=== PATIENT | male | born 2000 | race Caucasian/White ===

== ENCOUNTER 2018-09-25 20:17 | Emergency (ER) | payer OTHER, SELFPAY ==
--- NOTE | 2018-09-25 21:05 | EDPHYS ---
Physician Documentation [facility] Name: Donis Cagle Age: 17 yrs Sex: Male : 2000 Arrival Date: 09/25/2018 Time: 20:26 Bed Waiting Private MD: ED Physician Indra Sterling HPI: 09/25 20:52 This 17 yrs old Male presents to ER via Ambulatory with complaints of Work tw4 Note. 20:52 The patient presents to the emergency department with nausea, vomiting, 2 times since tw4 the onset of symptoms. Possible causes: unknown. The symptoms are aggravated by nothing. The symptoms are alleviated by nothing. Associated signs and symptoms: The patient has no apparent associated signs or symptoms. The patient has not experienced similar symptoms in the past. 20:55 Onset: The symptoms/episode began/occurred 2 day(s) ago, and improved yesterday. tw4 Historical: - Allergies: 20:28 No Known Allergies; aj - Home Meds: 20:28 None [Active]; aj - PMHx: 20:28 None; aj - PSHx: 20:28 None; aj - Immunization history:: Adult Immunizations up to date. - Social history:: Smoking status: Patient uses tobacco products, smokes one pack cigarettes per day. - Ebola Screening: : Patient negative for fever greater than or equal to 101.5 degrees Fahrenheit, and additional compatible Ebola Virus Disease symptoms Patient denies exposure to infectious person Patient denies travel to an Ebola-affected area in the 21 days before illness onset No symptoms or risks identified at this time. ROS: 20:52 Constitutional: Negative for fever, chills, and weight loss, Eyes: Negative for injury, tw4 pain, redness, and discharge, Cardiovascular: Negative for chest pain, palpitations, and edema, Respiratory: Negative for shortness of breath, cough, wheezing, and pleuritic chest pain. 20:52 Back: Negative for injury and pain, MS/Extremity: Negative for injury and deformity, Skin: Negative for injury, rash, and discoloration. 20:52 Abdomen/GI: Positive for nausea and vomiting, nausea, vomiting, and diarrhea, nausea. Exam: 20:52 Constitutional: This is a well developed, well nourished patient who is awake, alert, tw4 and in no acute distress. Head/Face: Normocephalic, atraumatic. Chest/axilla: Normal chest wall appearance and motion. Nontender with no deformity. No lesions are appreciated. Cardiovascular: Regular rate and rhythm with a normal S1 and S2. No gallops, murmurs, or rubs. Normal PMI, no JVD. No pulse deficits. Respiratory: Lungs have equal breath sounds bilaterally, clear to auscultation and percussion. No rales, rhonchi or wheezes noted. No increased work of breathing, no retractions or nasal flaring. Abdomen/GI: Soft, non-tender, with normal bowel sounds. No distension or tympany. No guarding or rebound. No evidence of tenderness throughout. Back: No spinal tenderness. No costovertebral tenderness. Full range of motion. MS/ Extremity: Pulses equal, no cyanosis. Neurovascular intact. Full, normal range of motion. Neuro: Awake and alert, GCS 15, oriented to person, place, time, and situation. Cranial nerves II-XII grossly intact. Motor strength 5/5 in all extremities. Sensory grossly intact. Cerebellar exam normal. Normal gait. Vital Signs: 20:28 BP 112 / 99; Pulse 76; Resp 19; Temp 98.1; Pulse Ox 97% on R/A; Weight 132.9 kg; Height aj 5 ft. 11 in. (180.34 cm); 20:28 Body Mass Index 40.86 (132.90 kg, 180.34 cm) aj MDM: 21:03 Differential diagnosis: Nonspecific abd pain, pancreatitis. Data reviewed: vital signs, tw4 nurses notes. Counseling: I had a detailed discussion with the patient and/or guardian regarding: the historical points, exam findings, and any diagnostic results supporting the discharge/admit diagnosis. Medical screen evaluation completed. [facility] emergency medical condition absent. Special discussion: I discussed with the patient/guardian in detail that at this point there is no indication for admission to the hospital. It is understood, however, that if the symptoms persist or worsen the patient needs to return immediately for re-evaluation. 21:05 Patient medically screened. tw4 Administered Medications: No medications were administered Disposition: 09/25/18 21:05 Discharged to Home. Impression: Encounter for general adult medical examination without abnormal findings. - Condition is Stable. - Discharge Instructions: Medical Screening Exam. - Medication Reconciliation Form, Thank You Letter, Antibiotic Education, Prescription Opioid Use form. - Work release form (09/25/18 21:08). aj - Follow up: Private Physician; When: Upon discharge from the Emergency Department; Reason: If symptoms return, Further diagnostic work-up, Recheck today's complaints, Continuance of care. - Problem is new. - Symptoms have improved. Signatures: Yamila Garcia RN RN Indra Murray MD MD tw4 Corrections: (The following items were deleted from the chart) 20:55 20:52 Onset: The symptoms/episode began/occurred today, tw 21:08 21:05 09/25/2018 21:05 Discharged to Home. Impression: Encounter for general adult aj medical examination without abnormal findings. Condition is Stable. Forms are Medication Reconciliation Form, Thank You Letter, Antibiotic Education, Prescription Opioid Use. Follow up: Private Physician; When: Upon discharge from the Emergency Department; Reason: If symptoms return, Further diagnostic work-up, Recheck today's complaints, Continuance of care. Problem is new. Symptoms have improved. tw4
--- NOTE | 2018-09-25 21:05 | ER ---
Nurse's Notes [facility] Name: Donis Cagle Age: 17 yrs Sex: Male : 2000 Arrival Date: 09/25/2018 Time: 20:26 Bed Waiting Private MD: Diagnosis: Encounter for general adult medical examination without abnormal findings Presentation: 09/25 20:27 Presenting complaint: Patient states: Patient needs a work note for past 2 days as aj patient called in to work for N/V and upper abdominal pain that has since resolved. Better after eating. Transition of care: patient was not received from another setting of care. Onset of symptoms was September 23, 2018. Risk Assessment: Do you want to hurt yourself or someone else? Patient reports no desire to harm self or others. Initial Sepsis Screen: Does the patient meet any 2 criteria? No. Patient's initial sepsis screen is negative. Does the patient have a suspected source of infection? No. Patient's initial sepsis screen is negative. Care prior to arrival: None. 20:27 Method Of Arrival: Ambulatory 20:27 Acuity: LISA 3 Triage Assessment: 20:28 General: Appears in no apparent distress. comfortable, obese, Behavior is calm, aj cooperative, appropriate for age. Pain: Denies pain. Neuro: Level of Consciousness is awake, alert, obeys commands, Oriented to person, place, time, situation, Appropriate for age. Respiratory: Airway is patent Respiratory effort is even, unlabored, Respiratory pattern is regular, symmetrical. GI: Patient reports N/V and upper abdominal pain that has since resolved. Derm: Skin is intact, is healthy with good turgor, Skin is pink, warm \T\ dry. normal. Historical: - Allergies: 20:28 No Known Allergies; aj - Home Meds: 20:28 None [Active]; aj - PMHx: 20:28 None; aj - PSHx: 20:28 None; aj - Immunization history:: Adult Immunizations up to date. - Social history:: Smoking status: Patient uses tobacco products, smokes one pack cigarettes per day. - Ebola Screening: : Patient negative for fever greater than or equal to 101.5 degrees Fahrenheit, and additional compatible Ebola Virus Disease symptoms Patient denies exposure to infectious person Patient denies travel to an Ebola-affected area in the 21 days before illness onset No symptoms or risks identified at this time. Vital Signs: 20: BP 112 / 99; Pulse 76; Resp 19; Temp 98.1; Pulse Ox 97% on R/A; Weight 132.9 kg; Height aj 5 ft. 11 in. (180.34 cm); 20: Body Mass Index 40.86 (132.90 kg, 180.34 cm) ED Course: 20:26 Patient arrived in ED. aj 20: Triage completed. aj 20: Arm band placed on left wrist. Patient placed in an exam room. aj 20:51 Indra Sterling MD is Attending Physician. tw4 Administered Medications: No medications were administered Outcome: :59 Medical screen evaluation completed per provider. Patient declined treatment. aj 20: Condition: good :59 Following a medical screening exam, the patient was provided information regarding alternative care sites and resources available per registration personnel. 21:05 Discharge ordered by . tw4 21:08 Patient left the ED. aj Signatures: Yamila Garcia RN RN Indra Murray MD MD tw4 Corrections: (The following items were deleted from the chart) 20: Presenting complaint: Patient states: Patient needs a work note for past 2 days aj as patient called in to work for N/V and upper abdominal pain that has since resolved aj : Acuity: LISA 5 aj aj
[2018-09-25 21:19] VITALS: BP 112/99; TEMP 98.1; O2SAT 97
== END 2018-09-25 21:08 | disposition home or self-care (01) ==
LOC: ER 20:17
DX: Z00.00 Encounter for general adult medical examination without abnormal findings (principal); F17.210 Nicotine dependence, cigarettes, uncomplicated
CPT/HCPCS: 99281

== ENCOUNTER 2018-11-27 17:19 | Emergency (ER) | payer SELFPAY ==
[2018-11-27] MEDS ORDERED: KETOROLAC 30 MG/ML INJ ONE (19:01)
--- NOTE | 2018-11-27 20:24 | RAD REPORT ---
EXAM DESCRIPTION: RAD - Foot Right 3 View - 11/27/2018 7:58 pm CLINICAL HISTORY: PAIN COMPARISON: No comparisons FINDINGS: No fracture or dislocation of the right foot is seen. A small plantar calcaneal spur is ev ident.
--- NOTE | 2018-11-27 20:39 | EDPHYS ---
Physician Documentation [facility] Name: Donis Cagle Age: 17 yrs Sex: Male : 2000 Arrival Date: 11/27/2018 Time: 17:21 Bed 18 Private MD: None, None ED Physician Aaron Mcneil HPI: 11/27 18:33 This 17 yrs old Male presents to ER via Ambulatory with complaints of Feet jmm Swelling. 18:33 The patient presents with pain. Onset: The symptoms/episode began/occurred today. jmm Modifying factors: The symptoms are alleviated by elevation of extremity, the symptoms are aggravated by weight bearing. Associated signs and symptoms: Pertinent negatives: fever. This is a 17 year old male with no chronic medical conditions that presents to the ED with right foot pain beginning today. Patient denies injury, denies fever. States having 1 episode previously. . Historical: - Allergies: 17:27 No Known Allergies; tw2 - Home Meds: 17:27 None [Active]; tw2 - PMHx: 17:27 None; tw2 - PSHx: 17:27 None; tw2 - Immunization history:: Adult Immunizations. - Social history:: Smoking status: . - Ebola Screening: : Patient negative for fever greater than or equal to 101.5 degrees Fahrenheit, and additional compatible Ebola Virus Disease symptoms Patient denies travel to an Ebola-affected area in the 21 days before illness onset. ROS: 18:33 Constitutional: Negative for fever, chills, and weight loss, Eyes: Negative for injury, jmm pain, redness, and discharge, ENT: Negative for injury, pain, and discharge, Neck: Negative for injury, pain, and swelling, Cardiovascular: Negative for chest pain, palpitations, and edema, Respiratory: Negative for shortness of breath, cough, wheezing, and pleuritic chest pain, Abdomen/GI: Negative for abdominal pain, nausea, vomiting, diarrhea, and constipation, Back: Negative for injury and pain, : Negative for injury, bleeding, discharge, and swelling. 18:33 MS/extremity: Positive for pain, swelling. 18:33 All other systems are negative. Exam: 18:33 Constitutional: This is a well developed, well nourished patient who is awake, alert, jmm and in no acute distress. Head/Face: atraumatic. Eyes: EOMI, no conjunctival erythema appreciated ENT: Moist Mucus Membranes Neck: Trachea midline, Supple Chest/axilla: Normal chest wall appearance and motion. Cardiovascular: Regular rate and rhythm. No edema appreciated Respiratory: Normal respirations, no respiratory distress appreciated Abdomen/GI: Non distended, soft Back: Normal ROM 18:33 Skin: erythema noted to the plantar surface of the right ball of the foot, TTP at the region of the 1st mtp, full dorsalis pulse, NVI. 18:33 Neuro: Orientation: is normal, Mentation: is normal, Memory: is normal. 18:33 Psych: Behavior/mood is pleasant, cooperative. Vital Signs: 17:26 BP 126 / 66; Pulse 60; Resp 18; Temp 97.7(TE); Pulse Ox 96% on R/A; Pain 7/10; tw2 MDM: 18:33 Patient medically screened. [facility] 20:31 Data reviewed: vital signs, nurses notes. Counseling: I had a detailed discussion with lupillo the patient and/or guardian regarding: the historical points, exam findings, and any diagnostic results supporting the discharge/admit diagnosis, radiology results, the need for outpatient follow up, to return to the emergency department if symptoms worsen or persist or if there are any questions or concerns that arise at home. ED course: Symptoms are alleviated with ketorolac. Patient given anti inflammatories and advised to follow up with podiatry. Patient given strict return precautions. Patient understood and agrees with the plan of care. . 11/27 18:34 Order name: Foot Right 3 View XRAY; Complete Time: 20:26 [facility] Administered Medications: 18:54 Drug: Ketorolac 30 mg Route: IM; Site: right gluteus; la1 20:48 Follow up: Response: No adverse reaction; Pain is decreased tl2 Disposition: 11/28 09:55 Co-signature as Attending Physician, Aaron Mcneil MD. rn Disposition: 11/27/18 20:38 Discharged to Home. Impression: Pain in right foot. - Condition is Stable. - Discharge Instructions: Foot Pain. - Prescriptions for Ibuprofen 800 mg Oral Tablet - take 1 tablet by ORAL route every 8 hours As needed take with food; 30 tablet. - Work release form, Medication Reconciliation Form, Thank You Letter, Antibiotic Education, Prescription Opioid Use form. - Follow up: Stran, Rajesh, DPM; When: 2 - 3 days; Reason: Recheck today's complaints, Continuance of care, Re-evaluation by your physician. Signatures: Dispatcher [employer] EDNaeem Hidalgo PA PA jmm Nieto, Roman, MD MD rn Attema, Lee RN RN la1 Amy Walden RN RN tw2 Rosa Reynoso RN RN tl2 Corrections: (The following items were deleted from the chart) 11/27 20:48 20:38 11/27/2018 20:38 Discharged to Home. Impression: Pain in right foot. Condition is tl2 Stable. Forms are Medication Reconciliation Form, Thank You Letter, Antibiotic Education, Prescription Opioid Use. Follow up: Rajesh Coyle; When: 2 - 3 days; Reason: Recheck today's complaints, Continuance of care, Re-evaluation by your physician. lupillo
--- NOTE | 2018-11-27 20:39 | ER ---
Nurse's Notes [facility] Name: Donis Cagle Age: 17 yrs Sex: Male : 2000 Arrival Date: 11/27/2018 Time: 17:21 Bed 18 Private MD: None, None Diagnosis: Pain in right foot Presentation: 11/27 17:25 Presenting complaint: Patient states: it was a little swollen yesterday but i had to tw2 work today and i am on my feet all day now it is just unbearable. Transition of care: patient was not received from another setting of care. Onset of symptoms was November 27, 2018. Risk Assessment: Do you want to hurt yourself or someone else? Patient reports no desire to harm self or others. Initial Sepsis Screen: Does the patient meet any 2 criteria? No. Patient's initial sepsis screen is negative. Does the patient have a suspected source of infection? No. Patient's initial sepsis screen is negative. Care prior to arrival: None. 17:25 Method Of Arrival: Ambulatory tw2 17:25 Acuity: LISA 4 tw2 17:27 Presenting complaint: Patient states: it hurts the most right under my big toe. tw2 Triage Assessment: 17:26 General: Appears in no apparent distress. Behavior is calm, cooperative, appropriate tw2 for age. Pain: Complains of pain in right foot. Historical: - Allergies: 17:27 No Known Allergies; tw2 - Home Meds: 17:27 None [Active]; tw2 - PMHx: 17:27 None; tw2 - PSHx: 17:27 None; tw2 - Immunization history:: Adult Immunizations. - Social history:: Smoking status: . - Ebola Screening: : Patient negative for fever greater than or equal to 101.5 degrees Fahrenheit, and additional compatible Ebola Virus Disease symptoms Patient denies travel to an Ebola-affected area in the 21 days before illness onset. Screenin:17 Abuse screen: Denies threats or abuse. Nutritional screening: No deficits noted. la1 Tuberculosis screening: No symptoms or risk factors identified. Fall Risk None identified. Assessment: 18:16 General: Appears comfortable, Behavior is calm, cooperative. Pain: Complains of pain in la1 right foot. Neuro: Level of Consciousness is awake, alert, obeys commands, Oriented to person, place, time, situation. Cardiovascular: Capillary refill < 3 seconds Patient's skin is warm and dry. Respiratory: Airway is patent Trachea midline Respiratory effort is even, unlabored. GI: No signs and/or symptoms were reported involving the gastrointestinal system. : No signs and/or symptoms were reported regarding the genitourinary system. Musculoskeletal: Swelling present in right foot. 20:09 Reassessment: Patient appears in no apparent distress at this time. Patient and/or tl2 family updated on plan of care and expected duration. Pain level reassessed. Patient is alert, oriented x 3, equal unlabored respirations, skin warm/dry/pink. awaiting further orders or dispo. 20:47 Reassessment: Patient appears in no apparent distress at this time. Patient and/or tl2 family updated on plan of care and expected duration. Pain level reassessed. Patient is alert, oriented x 3, equal unlabored respirations, skin warm/dry/pink. pt verbalized understanding of discharge instructions, need for follow up and prescription usage. Vital Signs: 17:26 BP 126 / 66; Pulse 60; Resp 18; Temp 97.7(TE); Pulse Ox 96% on R/A; Pain 7/10; tw2 ED Course: 17:21 Patient arrived in ED. sb2 17:22 None, None is Private Physician. sb2 17:26 Triage completed. tw2 17:26 Arm band placed on. tw2 17:28 Igor Burnette, RN is Primary Nurse. la1 17:39 Neaem Rizo PA is PHCP. jm 17:39 Aaron Mcneil MD is Attending Physician. [facility] 18:17 Call light in reach. la1 18:17 No provider procedures requiring assistance completed. Patient did not have IV access la1 during this emergency room visit. 19:59 Foot Right 3 View XRAY In Process Unspecified. EDMS 20:37 Rajesh Coyle DPM is Referral Physician. lupillo Administered Medications: 18:54 Drug: Ketorolac 30 mg Route: IM; Site: right gluteus; la1 20:48 Follow up: Response: No adverse reaction; Pain is decreased tl2 Outcome: 20:38 Discharge ordered by . lupillo 20:47 Discharged to home ambulatory, with family. tl2 20:47 Condition: stable 20:47 Discharge instructions given to patient, Instructed on discharge instructions, follow up and referral plans. medication usage, Demonstrated understanding of instructions, follow-up care, medications, Prescriptions given X 1. 20:48 Patient left the ED. tl2 Signatures: Dispatcher [employer] EDMS Naeem Rizo PA PA jmm Attema, Lee RN RN la1 Amy Walden RN RN tw2 Rosa Reynoso RN RN tl2 Sangeeta Shipley2
[2018-11-27 21:41] VITALS: BP 126/66; TEMP 97.7; O2SAT 96
== END 2018-11-27 20:48 | disposition home or self-care (01) ==
LOC: ER 17:19
DX: M79.671 Pain in right foot (principal)
CPT/HCPCS: 96372; 99283

== ENCOUNTER 2019-02-26 01:57 | Emergency (ER) | payer SELFPAY ==
--- NOTE | 2019-02-26 02:31 | ER ---
Nurse's Notes [facility] Name: Donis Cagle Age: 18 yrs Sex: Male : 2000 Arrival Date: 02/26/2019 Time: 01:59 Bed 6 Private MD: Diagnosis: Gingivitis Presentation: 02/26 02:18 Presenting complaint: Patient states: Pt reports pain in left side of his mouth, ea reports he used Orajel to help decrease the pain but it did not help. Transition of care: patient was not received from another setting of care. Onset of symptoms was February 26, 2019. Risk Assessment: Do you want to hurt yourself or someone else? Patient reports no desire to harm self or others. Initial Sepsis Screen: Does the patient meet any 2 criteria? No. Patient's initial sepsis screen is negative. Does the patient have a suspected source of infection? No. Patient's initial sepsis screen is negative. Care prior to arrival: None. 02:18 Method Of Arrival: Ambulatory ea 02:18 Acuity: LISA 4 ea Triage Assessment: 02:22 General: Appears uncomfortable, Behavior is calm, cooperative, appropriate for age. ea Pain: Complains of pain in upper left first bicuspid, upper left second bicuspid and upper left first molar. Historical: - Allergies: 02:21 No Known Allergies; ea - Home Meds: 02:21 None [Active]; ea - PMHx: 02:21 None; ea - PSHx: 02:21 None; ea - Immunization history:: Adult Immunizations. - Social history:: Smoking status: . - Ebola Screening: : No symptoms or risks identified at this time. Screenin:17 Abuse screen: Denies threats or abuse. Denies injuries from another. Nutritional tl2 screening: No deficits noted. Tuberculosis screening: No symptoms or risk factors identified. Fall Risk None identified. Total Ruth Fall Scale indicates No Risk (0-24 pts). Assessment: 02:18 General: Appears in no apparent distress. uncomfortable, Behavior is calm, cooperative, rr5 appropriate for age. Pain: Complains of pain in molar left upper Pain does not radiate. Pain currently is 3 out of 10 on a pain scale. Quality of pain is described as aching, Pain began gradually, Is intermittent. Neuro: Level of Consciousness is awake, alert, obeys commands, Oriented to person, place, time, situation, Appropriate for age. Cardiovascular: Capillary refill < 3 seconds Patient's skin is warm and dry. Respiratory: Airway is patent Respiratory effort is even, unlabored, Respiratory pattern is regular, symmetrical. GI: No signs and/or symptoms were reported involving the gastrointestinal system. : No signs and/or symptoms were reported regarding the genitourinary system. EENT: Oral mucosa is moist. Good dentition noted. Reports pain in left upper molar. Derm: Skin is intact, Skin temperature is warm. Musculoskeletal: Capillary refill < 3 seconds, Range of motion: intact in all extremities. 02:36 Reassessment: Patient appears in no apparent distress at this time. Patient is alert, rr5 oriented x 3, equal unlabored respirations, skin warm/dry/pink. discharge instruction given and explained without complaints made. Vital Signs: 02:24 BP 133 / 93; Pulse 65; Resp 19; Temp 97.8; Pulse Ox 99% ; Weight 127.01 kg; Height 6 ea ft. 2 in. (187.96 cm); 02:36 BP 131 / 81; Pulse 71; Resp 16; Pulse Ox 98% ; rr5 02:24 Body Mass Index 35.95 (127.01 kg, 187.96 cm) ea ED Course: 01:59 Patient arrived in ED. am2 02:10 Fernando Michaels MD is Attending Physician. pkl 02:10 Rosa Reynoso, WILBUR is Primary Nurse. tl2 02:17 Patient has correct armband on for positive identification. Bed in low position. Call rr5 light in reach. Pulse ox on. NIBP on. 02:20 Triage completed. ea 02:23 Arm band placed on right wrist. Patient placed in an exam room, on a stretcher, on ea pulse oximetry. 02:36 No provider procedures requiring assistance completed. Patient did not have IV access rr5 during this emergency room visit. Administered Medications: No medications were administered Outcome: 02:30 Discharge ordered by . pkl 02:36 Discharged to home ambulatory. rr5 02:36 Condition: stable 02:36 Discharge instructions given to patient, Instructed on discharge instructions, follow up and referral plans. medication usage, Demonstrated understanding of instructions, follow-up care, medications, Prescriptions given X 2. 02:37 Patient left the ED. rr5 Signatures: Fernando Michaels MD MD pkl Knox, Taylor RN RN tl2 Yamila Osman am2 Mirta Ralph, RN RN Gaston Shea RN RN rr5
--- NOTE | 2019-02-26 02:31 | EDPHYS ---
Physician Documentation [facility] Name: Donis Cagle Age: 18 yrs Sex: Male : 2000 Arrival Date: 02/26/2019 Time: 01:59 Bed 6 Private MD: ED Physician Fernando Michaels HPI: 02/26 02:25 This 18 yrs old Male presents to ER via Ambulatory with complaints of Mouth pkl Problem. 02:25 The patient presents with pain, left upper gum. Onset: The symptoms/episode pkl began/occurred 1 month(s) ago. Historical: - Allergies: 02:21 No Known Allergies; ea - Home Meds: 02:21 None [Active]; ea - PMHx: 02:21 None; ea - PSHx: 02:21 None; ea - Immunization history:: Adult Immunizations. - Social history:: Smoking status: . - Ebola Screening: : No symptoms or risks identified at this time. ROS: 02:25 Eyes: Negative for injury, pain, redness, and discharge. pkl 02:25 ENT: Positive for Gum pain 02:25 Neck: Negative for stiffness. 02:25 Cardiovascular: Negative for chest pain. 02:25 Respiratory: Negative for cough, shortness of breath. 02:25 Abdomen/GI: Negative for abdominal pain, nausea, vomiting, and diarrhea. 02:25 Back: Negative for acute changes. 02:25 : Negative for urinary symptoms. 02:25 MS/extremity: Negative for acute changes. 02:25 Skin: Negative for rash. 02:25 Neuro: Negative for altered mental status. Exam: 02:25 Head/Face: Normocephalic, atraumatic. Eyes: Pupils equal round and reactive to light, pkl extra-ocular motions intact. Lids and lashes normal. Conjunctiva and sclera are non-icteric and not injected. Cornea within normal limits. Periorbital areas with no swelling, redness, or edema. 02:25 ENT: Dental exam: gum swelling, that is mild, specifically in the left upper gum. 02:25 Neck: Exam negative for nuchal rigidity. 02:25 Chest/axilla: Exam negative for acute changes. 02:25 Cardiovascular: Exam negative for acute changes. 02:25 Respiratory: the patient does not display signs of respiratory distress, Respirations: normal, Breath sounds: are clear throughout. 02:25 Abdomen/GI: Exam negative for acute changes. 02:25 Back: Exam negative for acute changes. 02:25 : Exam negative for acute changes. 02:25 Musculoskeletal/extremity: Exam is negative for acute changes. 02:25 Skin: Exam negative for rash. 02:25 Neuro: Orientation: is normal, Mentation: is normal, Cranial nerves: grossly normal, Motor: is normal, Gait: is steady. Vital Signs: 02:24 BP 133 / 93; Pulse 65; Resp 19; Temp 97.8; Pulse Ox 99% ; Weight 127.01 kg; Height 6 ea ft. 2 in. (187.96 cm); 02:36 BP 131 / 81; Pulse 71; Resp 16; Pulse Ox 98% ; rr5 02:24 Body Mass Index 35.95 (127.01 kg, 187.96 cm) ea MDM: 02:10 Patient medically screened. pkl 02:25 Data reviewed: vital signs, nurses notes. pkl Administered Medications: No medications were administered Disposition: 02/26/19 02:30 Discharged to Home. Impression: Gingivitis. - Condition is Stable. - Prescriptions for Amoxicillin 500 mg Oral Capsule - take 1 capsule by ORAL route every 8 hours for 10 days; 30 tablet. Ultram 50 mg Oral Tablet - take 1 tablet by ORAL route every 8 hours As needed; 20 tablet. - Medication Reconciliation Form, Thank You Letter, Antibiotic Education, Prescription Opioid Use form. - Follow up: Private Physician; When: 2 - 3 days; Reason: Re-evaluation by your physician. - Problem is new. - Symptoms are unchanged. Signatures: Fernando Michaels MD MD pkl Mirta Ralph RN RN Gaston Shea RN RN rr5 Corrections: (The following items were deleted from the chart) 02:37 02:30 02/26/2019 02:30 Discharged to Home. Impression: Gingivitis. Condition is Stable. rr5 Forms are Medication Reconciliation Form, Thank You Letter, Antibiotic Education, Prescription Opioid Use. Follow up: Private Physician; When: 2 - 3 days; Reason: Re-evaluation by your physician. Problem is new. Symptoms are unchanged. pkl
[2019-02-26 04:52] VITALS: TEMP 97.8
[2019-02-26 04:53] VITALS: BP 131/81; O2SAT 98
== END 2019-02-26 02:37 | disposition home or self-care (01) ==
LOC: ER 01:57
DX: K05.10 Chronic gingivitis, plaque induced (principal)
CPT/HCPCS: 99283